=== PATIENT | male | born 1965 | race Caucasian/White ===

== ENCOUNTER 2017-06-09 01:54 | Emergency (ER) | payer OTHER ==
[2017-06-09] MEDS: LIDOCAINE/MYLANTA 40 ML BTL PO ×2 (02:21→08:00)
[2017-06-09 02:51] LABS: LIPASE 35 U/L (23-300)
[2017-06-09 03:33] LABS: ETHANOL < 10.0 mg/dl
[2017-06-09 03:39] LABS: TROPONIN-I 0.013 ng/ml (0.00-0.12)
[2017-06-09] MEDS: OXYCODONE/ACETAMINOPHEN (5/325) TAB PO (04:43)
[2017-06-09] MEDS: ONDANSETRON (ODT) 4 MG TAB ODT (07:13)
== END 2017-06-09 10:40 | disposition home or self-care (01) ==
LOC: E/R 01:54
DX: K29.20 Alcoholic gastritis without bleeding (principal); F10.20 Alcohol dependence, uncomplicated
CPT/HCPCS: 74176; 80306; 83690; 84484; 93005; 99285-25